=== PATIENT | male | born 1995 | race Caucasian/White ===

== ENCOUNTER → 2016-11-13 | Outpatient (CLI) | payer BC ==
[~2016-11-13] MED LIST: ATARAX25 MG PO; CLARITIN10 MG PO; FLEXERIL10 MG PO; LIDEX0.05% T; MEDROL DOSEPAK4 MG PO; MOTRIN400 MG PO; MOTRIN600 MG PO; NAPROSYN500 MG PO; NKHM; PREDNICOT20 MG PO; PREDNISONE10 MG PO; PREDNISONE20 MG PO; TRAMADOL HCL50 MG PO; VISTARIL25 M1 PO; ZITHROMAX250 MG PO
== END | disposition home or self-care (01) ==
LOC: RESCLI 11-12 10:59
DX: Z00.01 Encounter for general adult medical examination with abnormal findings (principal); B07.9 Viral wart, unspecified

== ENCOUNTER → 2016-11-28 | Outpatient (CLI) | payer BC | END | disposition home or self-care (01) | LOC: RESCLI 03:02 | DX: Z23 Encounter for immunization (principal); Z11.1 Encounter for screening for respiratory tuberculosis; Z88.0 Allergy status to penicillin ==